=== PATIENT | female | born 1945 | race African-American/Black ===

== ENCOUNTER 2020-09-02 14:49 | Emergency (ER) | payer OTHER ==
[~2020-09-02] VITALS: Ht 167.6 cm; Wt 98.9 kg
[2020-09-02] MEDS ORDERED: ACETAMINOPHEN-1 EACH PO (17:42)
[2020-09-02 18:00] VITALS: BP 134/76
== END 2020-09-02 18:00 | disposition home or self-care (01) ==
LOC: ER 14:49
DX: M16.12 Unilateral primary osteoarthritis, left hip (principal); E11.649 Type 2 diabetes mellitus with hypoglycemia without coma; I10 Essential (primary) hypertension; M79.7 Fibromyalgia; G20 Parkinson's disease; Z88.0 Allergy status to penicillin; Z88.2 Allergy status to sulfonamides; Z87.891 Personal history of nicotine dependence